=== PATIENT | male | born 1960 | race Caucasian/White ===

== ENCOUNTER 2017-09-06 00:26 | Inpatient (IN) | payer SELFPAY ==
[~2017-09-06] VITALS: Ht 172.7 cm; Wt 101.6 kg
[2017-09-06] VITALS (7 sets, daily range): BP systolic 112–139; BP diastolic 61–109
[~2017-09-06 00:26] MED LIST: ASPI81CT89 PO; ATA10 PO; GLIP5TAB4 PO; METF500T4 PO; Metoprolol Tartrate PO; NITR0.4T1 SL; SIMV20TA6 PO; SPIR25TA PO
[2017-09-06] MEDS ORDERED: MORPHINE SULFATE 4 MG/ML SYR ONE (00:39)
[2017-09-06] MEDS ORDERED: ONDANSETRON 4 MG/2 ML VIAL ONE (00:39)
[2017-09-06] MEDS ORDERED: MORPHINE SULFATE 4 MG/ML SYR IVP ONE (00:40)
[2017-09-06] MEDS ORDERED: ONDANSETRON 4 MG/2 ML VIAL IVP ONE (00:40)
--- NOTE | 2017-09-06 00:40 | NUR ---
PATIENT IS A 57 Y/O MALE WHO PRESENTS TO THE ED C/O CHEST PAIN. PT STATES, "MY CHEST HAS BEEN HURTING FOR 3 DAYS." PT REPORTS 8/10 SHARP CHEST PAIN THAT DOES NOT RADIATE, PT STATES HE HAS A HARD TIME BREATHING. PT DENIES SOB, REPORTS NAUSEA DENIES VOMITING/DIARRHEA. PT AAOX4, RR EVEN/UNLABORED. PT REPOSITIONED FOR COMFORT, BED IN LOWEST POSITION. ER MD DR. MONSALVE NOTIFIED. WILL CONTINUE TO MONITOR.
--- NOTE | 2017-09-06 00:57 | NUR ---
IVP MEDS GIVEN-NADR AT THIS TIME
--- NOTE | 2017-09-06 01:00 | NUR ---
PULLED ASP 325 MG AND 3 TABS OF NITRO SUBLINGUAL. Addendum: 09/06/17 at 0125 by MEDDCV PULLED ASP 325 MG AND 3 TABS OF NITRO SUBLINGUAL. RETURNED 2 NITRO TABS, GAVE 1 NITRO TAB.
[2017-09-06 01:01] LABS: HEMATOCRIT 49.9 % (36-52); HEMOGLOBIN 16.3 g/dL (12.0-18.0); MEAN CORPUSCULAR HEMOGLOBIN 29 pg (27-31); MEAN CORPUSCULAR HGB CONC 33 g/dL (33-37); MEAN CORPUSCULAR VOLUME 87 fL (80-94); PLATELET COUNT (AUTO) 174 K/uL (140-450); RED BLOOD CELL COUNT(AUTO) 5.73 MIL/uL (4.20-6.10); RED CELL DISTRIBUTION WIDTH 12.5 % (11.6-13.7); WHITE BLOOD COUNT (AUTO) 8.1 K/uL (4.8-10.8)
[2017-09-06] MEDS ORDERED: ASPIRIN 325 MG TAB ONE (01:03)
[2017-09-06] MEDS ORDERED: NITROGLYCERIN 0.4 MG TAB SL ONE ×2 (01:03→01:20)
[2017-09-06] MEDS ORDERED: ASPIRIN 325 MG TAB PO ONE (01:20)
[2017-09-06 01:27] LABS: EOSINOPHILS % (MANUAL) 1 % (0-4); LYMPHOCYTES % (MANUAL) 35 % (20-46); MONOCYTES % (MANUAL) 9 % (5-12)
[2017-09-06 01:34] LABS: ANION GAP 14.8 (8-16); CARBON DIOXIDE 27.2 mmol/L (21-32); CREATININE 1.5 mg/dL (0.7-1.3); TOTAL BILIRUBIN 0.8 mg/dL (0.0-1.0)
[2017-09-06 01:35] LABS: ALBUMIN 3.6 g/dL (3.4-5.0)
[2017-09-06] MEDS ORDERED: HYDROmorphone PFS 2 MG/ML SYR IVP ONE (01:45)
[2017-09-06] MEDS: NACL 0.9% 1,000 ML IV SCH ×2 (02:49→22:35)
[2017-09-06] MEDS ORDERED: ONDANSETRON 4 MG/2 ML VIAL IVP PRN (02:50)
[2017-09-06] MEDS ORDERED: ACETAMINOPHEN 325 MG TAB PO PRN (02:50)
[2017-09-06] MEDS ORDERED: HYDROcodone/APAP 7.5/325 MG 1 TAB PO PRN (02:50)
[2017-09-06] MEDS ORDERED: DEXTROSE 50% 50 ML SYR IVP PRN (02:55)
[2017-09-06] MEDS ORDERED: INSULIN HUMAN REGULAR 100 UNITS/ML 10 ML VIAL SUBQ SCH (03:00)
--- NOTE | 2017-09-06 03:20 | NUR ---
ADMITTED PT FROM ER. AAOX4. DX: CHEST PAIN. IV TO LEFT AC #18G, INTACT AND PATENT. ON O2 AT 2L/MIN VIA NC. AT BEDSIDE. ORIENTED PT TO ROOM. CALL LIGHT WITHIN REACH WILL CONTINUE TO MONITOR.
--- NOTE | 2017-09-06 03:20 | NUR ---
Patient will be admitted to care of DR. CLARK. Admited to TELE. Will go to room 106A. Belongings list completed. Report to MERI KENNEDY.
[2017-09-06] MEDS ORDERED: SIMETHICONE 80 MG TAB.CHEW PO PRN (03:40)
[2017-09-06] MEDS ORDERED: SIMETHICONE 80 MG TAB.CHEW PO ONE (03:40)
[2017-09-06] MEDS: MORPHINE SULFATE 2 MG/ML SYR IVP PRN ×3 (04:02→15:37)
--- NOTE | 2017-09-06 04:03 | NUR ---
PT C/O CHEST PAIN 03/27. MORPHINE 1 MG IVP GIVEN. CALL LIGHT WITHIN REACH. WILL CONTINUE TO MONITOR.
[2017-09-06 04:29] LABS: FREE T4 (FREE THYROXINE) 0.95 ng/dL (0.76-1.46); MAGNESIUM 1.9 mg/dL (1.8-2.4)
[2017-09-06 04:52] LABS: PROTHROMBIN TIME 8.9 secs (10.8-13.4)
[2017-09-06 05:02] LABS: CHOL/HDL RATIO 5.4 (1-4.5); PHOSPHORUS 3.3 mg/dL (2.5-4.9)
--- NOTE | 2017-09-06 05:43 | NUR ---
PT SLEEPING BUT EASILY AROUSABLE. NO S/S OF DISTRESS NOTED. AT BEDSIDE. CALL LIGHT WITHIN REACH.
[2017-09-06 05:56] LABS: THYROID STIMULATING HORMONE 4.55 uIU/mL (0.34-3.74)
[2017-09-06] MEDS: NITROGLYCERIN 0.4 MG TAB SL PRN ×3 (05:59→13:10)
--- NOTE | 2017-09-06 06:00 | NUR ---
PT C/O CHEST PAIN 9/10 ON PAIN SCALE. NITRO 0.4 MG GIVEN AT 0559. WILL CONTINUE TO MONITOR.
--- NOTE | 2017-09-06 06:05 | NUR ---
PT STILL COMPLAINING OF CHEST PAIN 04/27. SECOND DOSE OF NITRO 0.4MG SL GIVEN. WILL CONTINUE TO MONITOR
--- NOTE | 2017-09-06 06:09 | NUR ---
V/S TAKEN. BP 84/63. REPORTED V/S TO DR. SIDDIQI. ORDER TO HOLD 3RD DOSE OF NITRO AND RETAKE BP PT'S SITTING DOWN.
--- NOTE | 2017-09-06 06:11 | NUR ---
PT BP 107/60. PT STATED THAT PAIN IS 5/10. NO SOB NOTED. WAITING FOR PHARMACY TO VERIFY ORDER FOR TORADOL 15 MG IVP.
[2017-09-06] MEDS ORDERED: glipiZIDE 5 MG TAB PO SCH (06:30)
--- NOTE | 2017-09-06 06:58 | NUR ---
BLOOD SUGAR CHECKED 110. NO INSULIN COVERAGE NEEDED.
--- NOTE | 2017-09-06 06:59 | NUR ---
PATIENT HAS BEEN SCREENED AND CATEGORIZED MODERATE NUTRITION RISK. PATIENT WILL BE SEEN WITHIN 3-5 DAYS OF ADMISSION. 09/08/17-09/10/17 SUNITHA PEDERSON MS, RDN
--- NOTE | 2017-09-06 07:05 | NUR ---
RECEIVED PATIENT REPORT AT BEDSIDE. PATIENT AWAKE AND ALERT. PATIENT CURRENTLY BEING MEDICATED FOR CHEST PAIN BY CAR SALESMAN NURSE. WILL REASSESS. PATIENT ON 2L O2 VIA NC. NO SOB OR S/S OF DISTRESS NOTED. O2 SAT 97% AT THIS TIME. IV LINE NOTED TO THE LEFT AC WITH IVF INFUSING WELL. PATIENT ON TELE MONITORING. BED LOWERED WITH CALL LIGHT WITHIN REACH. WILL CONTINUE TO MONITOR
[2017-09-06] MEDS: KETOROLAC 15 MG/ML VIAL IVP SCH ×3 (07:07→23:20)
[2017-09-06] MEDS: BLOOD GLUCOSE MONITORING 1 DEV DEV FS SCH ×4 (07:07→21:31)
--- NOTE | 2017-09-06 07:07 | NUR ---
PT C/O PAIN 5/[address] SIDDIQI ORDERED TO GIVE TORADOL 15MG IVP. NO SOB NOTED.
--- NOTE | 2017-09-06 07:08 | NUR ---
TORADOL 15MG IVP GIVEN. WILL CONTINUE TO MONITOR. CALL LIGHT WITHIN REACH.
--- NOTE | 2017-09-06 07:09 | NUR ---
ENDORSED PT TO DAY SHIFT NURSE FOR CONTINUITY OF CARE. PT IN STABLE CONDITION.
[2017-09-06] MEDS: CYCLOBENZAPRINE 10 MG TAB PO SCH ×3 (08:45→16:57)
[2017-09-06] MEDS: metFORMIN 500 MG TAB PO SCH ×2 (08:45→16:58)
[2017-09-06] MEDS: PANTOPRAZOLE 40 MG TABEC PO SCH (08:45)
[2017-09-06] MEDS: SPIRONOLACTONE 25 MG TAB PO SCH (08:46)
[2017-09-06] MEDS: DOCUSATE SODIUM 100 MG GELCAP PO SCH ×2 (08:46→21:26)
[2017-09-06] MEDS: ASPIRIN 81 MG TAB.CHEW PO SCH (08:46)
[2017-09-06] MEDS ORDERED: METOPROLOL 25 MG TAB PO SCH (09:00)
--- NOTE | 2017-09-06 09:00 | NUR ---
ADMINISTERED DUE MEDS. PATIENT TOLERATED WELL
--- NOTE | 2017-09-06 11:20 | NUR ---
PATIENT SEEN BY DR SUERO
[2017-09-06] MEDS: INSULIN LISPRO SLIDING SCALE 100 UNITS/ML VIAL SUBQ PRN ×3 (12:27→21:32)
[2017-09-06] MEDS ORDERED: ATOR40TA PO (14:14)
[2017-09-06] MEDS ORDERED: METF1000 PO (14:14)
[2017-09-06] MEDS ORDERED: CARV3.12 PO (14:14)
[2017-09-06] MEDS ORDERED: GLIP10TA3 PO (14:14)
[2017-09-06] MEDS ORDERED: HYDR-3320 PO (14:14)
[2017-09-06] MEDS ORDERED: GABA-638 PO (14:14)
--- NOTE | 2017-09-06 16:00 | NUR ---
PATIENT ASLEEP IN BED. NO S/S OF DISTRESS NOTED
[2017-09-06] MEDS: GABAPENTIN 300 MG CAP PO SCH (16:57)
[2017-09-06] MEDS: glipiZIDE 10 MG TAB PO SCH (16:58)
[2017-09-06 17:35] LABS: APPEARANCE,URINE CLEAR (CLEAR); BILIRUBIN,URINE 1+ (NEGATIVE); BLOOD, URINE NEGATIVE (NEGATIVE); COLOR,URINE YELLOW (YELLOW); LEUKOCYTE ESTERASE ,URINE NEGATIVE (NEGATIVE); NITRITE, URINE NEGATIVE (NEGATIVE); PH,URINE 5.5 (5.0-9.0); UGLUCOSE 3+ (NEGATIVE)
[2017-09-06 17:39] LABS: RBC,URINE 0-5 (RARE) /HPF (0-5); WBC,URINE 0-5 (RARE) /HPF (0-5)
[2017-09-06 17:58] LABS: BARBITURATE, URINE NEG. ng/ml (NEG <=200); BENZODIAZEPINE, URINE NEG. ng/mL (NEG <=200); CANNABINOID, URINE NEG. ng/mL (NEG <=50); COCAINE, URINE NEG. ng/mL (NEG <=300); OPIATE, URINE POS. ng/mL (NEG <=2000); PHENCYCLIDINE SCREEN,URINE NEG. ng/mL (NEG <=25)
--- NOTE | 2017-09-06 19:20 | NUR ---
PATIENT REPORT GIVEN TO FINISHING MACHINE OPERATOR AUTOMATIC NURSE. PATIENT ENDORSED IN STABLE CONDITION
--- NOTE | 2017-09-06 19:25 | NUR ---
RECEIVED FROM AM RN IN BED AWAKE AND ALERT. ORIENTED X 4. CLEAR SPEECH . SPEAKS LAO AND UNDERSTANDS A LITTLE OF LATVIAN. DX. OF CHEST PAIN. TELEMETRY MONITORING. HX. STENT PLACEMENT. CALL LIGHT WITH IN REACH AND RE-ORIENTED TO CALL LIGHT USE. CARE PLANS FOR THE NIGHT DISCUSSED WITH HIM AND FAMILY MEMBERS. DENIES PAIN AT H IS TIME. MEDICATED WITH PAIN RELIEVER PRN.
[2017-09-06] MEDS ORDERED: SIMVASTATIN 20 MG TAB PO SCH (21:00)
--- NOTE | 2017-09-06 22:48 | NUR ---
PT. SLEEPING. NO RESTLESSNESS. TELEMETRY MONITORING. CALL LIGHT BESIDE HIM WITH IN REACH. FAMILY MEMBERS LEFT ON TIME.
--- NOTE | 2017-09-06 23:50 | NUR ---
AWAKE AT THIS TIME. REPOSITIONED AND REQUESTED FOR WATER. ABLE TO VERBALIZE SIMPLE NEEDS. PT. AT THIS TIME ASKED FOR PAIN RELIEVER RT PAIN IN CHEST. INFORMED HIM THAT I JUST GAVE IT TO HIM LIKE HOW MANY MINUTES AGO. "OK"
--- NOTE | 2017-09-07 02:20 | NUR ---
SLEEPING WELL. NO RESTLESSNESS . NO SOB . CALL LIGHT WITH IN REACH. IVF SITE INTACT AND NO INFILTRATION.
[2017-09-07 04:00] VITALS: BP 116/68
[2017-09-07] MEDS: glipiZIDE 10 MG TAB PO SCH ×2 (05:34→17:30)
[2017-09-07] MEDS: KETOROLAC 15 MG/ML VIAL IVP SCH ×3 (05:34→17:35)
[2017-09-07] MEDS: BLOOD GLUCOSE MONITORING 1 DEV DEV FS SCH ×4 (06:04→21:00)
[2017-09-07] MEDS: INSULIN LISPRO SLIDING SCALE 100 UNITS/ML VIAL SUBQ PRN ×4 (06:06→20:36)
--- NOTE | 2017-09-07 06:29 | NUR ---
SLEPT WELL THIS SHIFT. NO COMPLAINTS OF CHEST PAIN RT WITH TORADOL IVP ADMINISTERED BID ORDERED. ABLE TO GO RESTROOM BY HIMSELF SEEN BY ME. ROM X 4. CLEAR SPEECH.
--- NOTE | 2017-09-07 07:17 | NUR ---
ENDORSED TO THE NEXT RN FOR CONTINUITY OF CARE. AWAKE AND ALERT.
--- NOTE | 2017-09-07 07:18 | NUR ---
RECEIVED REPORT FROM THE METAL TEMPERER NURSE AT BEDSIDE FOR CONTINUITY OF CARE. PT IS AWAKE AND ORIENTED. INTRODUCED MYSELF AND UPDATED THE BOARD. PT IS CRINGING D/T PAIN. PER METAL TEMPERER NURSE, SHE JUST GAVE HIM TORADOL AROUND 0600 THIS MORNING. NOTED IV ON LAC 18G NS AT 50ML. SKIN INTACT. RESIDENT DR TO SEE PT. C/O PAIN. DR ORDERED KPAD. WILL REQUEST.
[2017-09-07 07:33] LABS: BASOPHILS # (AUTO) 0.1 K/uL (0.00-0.22); EOSINOPHILS # (AUTO) 0.1 K/uL (0-0.4); HEMATOCRIT 42.9 % (36-52); HEMOGLOBIN 14.1 g/dL (12.0-18.0); LYMPHOCYTES # (AUTO) 1.7 K/uL (2.0-11.5); LYMPHOCYTES % (AUTO) 23.1 % (20.5-51.1); MEAN CORPUSCULAR HEMOGLOBIN 29 pg (27-31); MEAN CORPUSCULAR HGB CONC 33 g/dL (33-37); MEAN CORPUSCULAR VOLUME 87 fL (80-94); MONOCYTES # (AUTO) 0.7 K/uL (0.8-1.0); NEUTROPHILS # (AUTO) 4.8 K/uL (1.8-7.7); NEUTROPHILS % (AUTO) 64.9 % (42.2-75.2); PLATELET COUNT (AUTO) 147 K/uL (140-450); RED BLOOD CELL COUNT(AUTO) 4.96 MIL/uL (4.20-6.10); RED CELL DISTRIBUTION WIDTH 12.7 % (11.6-13.7); WHITE BLOOD COUNT (AUTO) 7.4 K/uL (4.8-10.8)
[2017-09-07 07:57] LABS: ANION GAP 13.1 (8-16); CARBON DIOXIDE 24.6 mmol/L (21-32); CREATININE 1.1 mg/dL (0.7-1.3); POTASSIUM 3.7 mmol/L (3.5-5.1)
[2017-09-07 08:00] VITALS: BP 119/78
[2017-09-07] MEDS: LOSARTAN 50 MG TAB PO SCH (08:11)
[2017-09-07] MEDS: DOCUSATE SODIUM 100 MG GELCAP PO SCH ×2 (08:11→20:38)
[2017-09-07] MEDS: ATORVASTATIN 20 MG TAB PO SCH (08:11)
[2017-09-07] MEDS: PANTOPRAZOLE 40 MG TABEC PO SCH (08:11)
[2017-09-07] MEDS: metFORMIN 500 MG TAB PO SCH ×2 (08:11→17:30)
[2017-09-07] MEDS: GABAPENTIN 300 MG CAP PO SCH ×3 (08:12→17:30)
[2017-09-07] MEDS: ASPIRIN 81 MG TAB.CHEW PO SCH (08:12)
[2017-09-07] MEDS: HYDROCHLOROTHIAZIDE 25 MG TAB PO SCH (08:12)
[2017-09-07] MEDS: SPIRONOLACTONE 25 MG TAB PO SCH (08:12)
[2017-09-07] MEDS: CARVEDILOL 3.125 MG TAB PO SCH (08:13)
[2017-09-07] MEDS: CYCLOBENZAPRINE 10 MG TAB PO SCH ×3 (08:13→17:30)
[2017-09-07] MEDS: MORPHINE SULFATE 2 MG/ML SYR IVP PRN (08:14)
--- NOTE | 2017-09-07 08:17 | NUR ---
ADMINISTERED MORNING MEDS. PT C/O CHEST PAIN. 03/27 GAVE 1MG MORPHINE ALONG WITH MORNING MEDS. PT TOLERATED WELL. WILL CONTINUE TO MONITOR PT.
--- NOTE | 2017-09-07 10:20 | NUR ---
PT SLEEPING SOUNDLY. SNORING. NO SIGNS OF DISTRESS.
--- NOTE | 2017-09-07 10:52 | NUR ---
RADIOLOGIST HERE TO DO AN ECHO. WILL CONTINUE TO MONITOR PT. Addendum: 09/07/17 at 1054 by Sendy Richard RN DISREGARD, WRONG PT.
[2017-09-07 12:00] VITALS: BP 119/79
--- NOTE | 2017-09-07 13:44 | NUR ---
PT SLEEPING SOUNDLY. NO SIGNS OF DISTRESS.WILL CONTINUE TO MONITOR PT.
--- NOTE | 2017-09-07 15:12 | NUR ---
SLEEPING. NO SIGNS OF DISTRESS. AND DAUGHTER AT BEDSIDE. WILL CONTINUE TO MONITOR PT.
[2017-09-07 16:00] VITALS: BP 119/74
--- NOTE | 2017-09-07 17:10 | NUR ---
AT BEDSIDE. PT SLEEPING. NO SIGNS OF DISTRESS. WILL CONTINUE TO MONITOR PT.
[2017-09-07] MEDS: NACL 0.9% 1,000 ML IV SCH (17:55)
--- NOTE | 2017-09-07 18:36 | NUR ---
PT ATE 100% DINNER. SITTING UP AND WATCHING TV. SPOUSE GONE HOME. NO SIGNS OF DISTRESS. NO COMPLAINTS. WILL CONTINUE TO MONITOR PT.
--- NOTE | 2017-09-07 19:15 | NUR ---
ENDORSED PT TO THE GRASS FARM LABORER NURSE AT BEDSIDE FOR CONTINUITY OF CARE. PT IN STABLE CONDITION.
--- NOTE | 2017-09-07 19:25 | NUR ---
RECEIVED PT FROM DASH RN PT IS AAOX4 AMBULATORY IV ON LEFT FA INFUSING WELL , DENIES ANYCHEST PAIN, ON TELEMETRY SR 1 AV BLOCK PINITIAL ASSESSMENT DONE
[2017-09-07 20:00] VITALS: BP 114/78
--- NOTE | 2017-09-07 20:00 | NUR ---
PT AMBULATES TO THE RESTROOM AND HAS A BM
--- NOTE | 2017-09-07 21:30 | NUR ---
BLOOD SUGAR TEST 236 COVERAGE WITH 4 UNITS SUBQ HUMALOG PROTOCOL
[2017-09-08] VITALS: BP 103/75
--- NOTE | 2017-09-08 | NUR ---
PT SLEEPING WELL NOT DISTRESS NOTED ON TELEMETRY SR
[2017-09-08] MEDS: KETOROLAC 15 MG/ML VIAL IVP SCH ×2 (00:43→05:43)
[2017-09-08] MEDS: MORPHINE SULFATE 2 MG/ML SYR IVP PRN (03:48)
[2017-09-08 04:01] VITALS: BP 114/80
--- NOTE | 2017-09-08 04:10 | NUR ---
PT AFTER PAIN MEDIC GIVEN GETTING SLEEP ON TELEMETRY SR IV ON LEFT AC INFUSING WELL
[2017-09-08] MEDS: BLOOD GLUCOSE MONITORING 1 DEV DEV FS SCH ×2 (05:39→12:10)
[2017-09-08] MEDS: INSULIN LISPRO SLIDING SCALE 100 UNITS/ML VIAL SUBQ PRN ×2 (05:41→12:09)
--- NOTE | 2017-09-08 05:54 | NUR ---
SPONGE BATH GIVEN LINEN CHANGED ON TELE SR 1 AV BLOCK REMAIN STABLE
--- NOTE | 2017-09-08 06:27 | NUR ---
PT REMAIN STABLE NOT DISTRESS NOTED DENIES ANY PAIN ON TELEMETRY SR
[2017-09-08] MEDS: glipiZIDE 10 MG TAB PO SCH (06:32)
[2017-09-08 07:07] LABS: BASOPHILS # (AUTO) 0.1 K/uL (0.00-0.22); BASOPHILS % (AUTO) 1.4 % (0.0-2.0); EOSINOPHILS # (AUTO) 0.1 K/uL (0-0.4); EOSINOPHILS % (AUTO) 2.3 % (0.0-4.0); HEMATOCRIT 41.7 % (36-52); HEMOGLOBIN 14.3 g/dL (12.0-18.0); LYMPHOCYTES # (AUTO) 1.9 K/uL (2.0-11.5); LYMPHOCYTES % (AUTO) 32.5 % (20.5-51.1); MEAN CORPUSCULAR HEMOGLOBIN 30 pg (27-31); MEAN CORPUSCULAR HGB CONC 34 g/dL (33-37); MEAN CORPUSCULAR VOLUME 86 fL (80-94); MONOCYTES # (AUTO) 0.6 K/uL (0.8-1.0); MONOCYTES % (AUTO) 10.6 % (1.7-9.3); NEUTROPHILS # (AUTO) 3.1 K/uL (1.8-7.7); NEUTROPHILS % (AUTO) 53.2 % (42.2-75.2); PLATELET COUNT (AUTO) 153 K/uL (140-450); RED BLOOD CELL COUNT(AUTO) 4.86 MIL/uL (4.20-6.10); RED CELL DISTRIBUTION WIDTH 12.6 % (11.6-13.7); WHITE BLOOD COUNT (AUTO) 5.8 K/uL (4.8-10.8)
--- NOTE | 2017-09-08 07:15 | NUR ---
RECEIVED BEDSIDE REPORT AT BEDSIDE FROM NIGHTSHIFT NURSE. PATIENT IS ASLEEP BUT AROUSABLE. PATIENT A&OX4 AT THIS TIME. PATIENT BREATHING IS SYMMETRICAL AND UNLABORED. PATIENT DOES NOT COMPLAIN OF PAIN AT THIS TIME. NO SIGNS OF NAUSEA OR DIAPHORESIS AT THIS TIME. INSTRUCTED PATIENT TO CALL IF HE NEEDS ANYTHING. PROVIDED CALL LIGHT FOR PATIENT AND SHOWED HIM HOW TO USE IT. PATIENT DEMONSTRATED HOW TO USE THE CALL LIGHT. UPDATED WHITE BOARD ON PATIENT'S WALL. WILL CONTINUE TO MONITOR PATIENT.
[2017-09-08 07:46] LABS: ANION GAP 14.4 (8-16); CARBON DIOXIDE 27.6 mmol/L (21-32); CREATININE 1.1 mg/dL (0.7-1.3)
[2017-09-08 08:07] VITALS: BP 127/91
[2017-09-08] MEDS: ASPIRIN 81 MG TAB.CHEW PO SCH (08:54)
[2017-09-08] MEDS: SPIRONOLACTONE 25 MG TAB PO SCH (08:54)
[2017-09-08] MEDS: HYDROCHLOROTHIAZIDE 25 MG TAB PO SCH (08:55)
[2017-09-08] MEDS: CARVEDILOL 3.125 MG TAB PO SCH (08:55)
[2017-09-08] MEDS: PANTOPRAZOLE 40 MG TABEC PO SCH (08:56)
[2017-09-08] MEDS: LOSARTAN 50 MG TAB PO SCH (08:56)
[2017-09-08] MEDS: ATORVASTATIN 20 MG TAB PO SCH (08:56)
[2017-09-08] MEDS: metFORMIN 500 MG TAB PO SCH (08:57)
[2017-09-08] MEDS: DOCUSATE SODIUM 100 MG GELCAP PO SCH (08:57)
[2017-09-08] MEDS: GABAPENTIN 300 MG CAP PO SCH ×2 (08:57→12:04)
[2017-09-08] MEDS: CYCLOBENZAPRINE 10 MG TAB PO SCH ×2 (08:58→12:04)
[2017-09-08] MEDS ORDERED: IBUP-2213 PO (09:12)
[2017-09-08] MEDS ORDERED: ASPI81CT89 PO (09:12)
--- NOTE | 2017-09-08 10:05 | NUR ---
PATIENT IS ASLEEP AT THIS TIME BUT STILL AROUSABLE. NO SIGNS OF RESPIRATORY DISTRESS OR DEPRESSION NOTED. WILL CONTINUE TO MONITOR PATIENT.
--- NOTE | 2017-09-08 12:00 | NUR ---
D/C INSTRUCTIONS GIVEN. THOROUGH ED ON DIABETES, DIET, EXERCISE GIVEN. PT AND FAMILY VERBALIZED UNDERSTANDING. REMOVED TELE MONITOR; IV, CANNULA INTACT, NO BLEEDING NOTED; ID BANDS. FAMILY WILL GATHER PERSONAL BELONGINGS. PT WILL GET DRESSED AND WILL LET US KNOW WHEN HE IS READY TO LEAVE. WILL HAVE WHEELCHAIR READY.
--- NOTE | 2017-09-08 12:25 | NUR ---
PUSHED PT OUT IN A WHEELCHAIR ACCOMPANIED BY AND DAUGHTER. ALL PERSONAL BELONGINGS WITH FAMILY. PT IN STABLE CONDITION.
== END 2017-09-08 12:25 | disposition home or self-care (01) | DRG 205 ==
LOC: MED 00:26 → MTU 02:52
PROVIDERS: ADMIT Family Medicine Sports Medicine; ATTEND Family Medicine Sports Medicine
DX: M94.0 Chondrocostal junction syndrome [Tietze] (principal); N17.0 Acute kidney failure with tubular necrosis; D68.59 Other primary thrombophilia; E11.65 Type 2 diabetes mellitus with hyperglycemia; I10 Essential (primary) hypertension; I25.10 Atherosclerotic heart disease of native coronary artery without angina pectoris; E78.5 Hyperlipidemia, unspecified; Z79.84 Long term (current) use of oral hypoglycemic drugs; Z79.899 Other long term (current) drug therapy; Z95.5 Presence of coronary angioplasty implant and graft; Z79.82 Long term (current) use of aspirin
CPT/HCPCS: 36415; 71045; 80048; 80053; 80305; 81001; 82948; 83036; 83690; 83735; 83880; 84100; 84439; 84443; 84484; 85025; 85610; 85730; 87081; 93005; 93925; 93970; 96374; 96375; 99285; J1170; J1815; J1885; J2270; J2405; J7030; Q0092

== ENCOUNTER 2018-05-31 20:10 | Inpatient (IN) | payer MEDICAID ==
[~2018-05-31] VITALS: Ht 172.7 cm; Wt 91.6 kg
[2018-05-31 20:10] VITALS: BP 125/71
[~2018-05-31 20:10] MED LIST changes: -ATA10 PO; +ATOR40TA PO; +CARV3.12 PO; +GABA-638 PO; +GLIP10TA3 PO; -GLIP5TAB4 PO; +HYDR-3320 PO; +IBUP-2213 PO; +METF1000 PO; -METF500T4 PO; -Metoprolol Tartrate PO; -NITR0.4T1 SL; -SIMV20TA6 PO; -SPIR25TA PO
--- NOTE | 2018-05-31 20:10 | NUR ---
PATIENT BIB W/C TO ER BED 7.
--- NOTE | 2018-05-31 20:12 | NUR ---
PT BIB W/C C/O C/P-LT ARM , PAIN 10/10, X 1HOUR- AT WORK. PUT PT ON MONITOR SHOWS SR. AUCC 309.DENIES N/V/D; SKIN IS PINK/WARM/DRY; AWAKE, ALERT.; RESPIRATION RATE IS FAST. LUNGS CLEAR BL; SHOWED PT TO DO DEEP BREATH. HR EVEN AND REGULAR; PT DENIES ANY FEVER, SOB, OR COUGH AT THIS TIME; PATIENT STATES PAIN OF 10/10 TO LEFT CHEST AT THIS TIME; VSS; PATIENT POSITIONED FOR COMFORT; HOB ELEVATED; BEDRAILS UP X2; BED DOWN. ER MD MADE AWARE OF PT STATUS.
[2018-05-31] MEDS ORDERED: LORazepam 2 MG/ML VIAL IVP ONE (20:15)
[2018-05-31] MEDS ORDERED: ASPIRIN 325 MG TAB PO ONE (20:15)
[2018-05-31] MEDS ORDERED: NITROGLYCERIN 2% 1 GM PKT TP ONE (20:15)
--- NOTE | 2018-05-31 20:22 | NUR ---
slot technician at bedside.
[2018-05-31 20:32] LABS: BASOPHILS # (AUTO) 0.1 K/uL (0.00-0.22); EOSINOPHILS # (AUTO) 0.1 K/uL (0-0.4); EOSINOPHILS % (AUTO) 1.4 % (0.0-4.0); HEMATOCRIT 45.4 % (36-52); HEMOGLOBIN 15.4 g/dL (12.0-18.0); LYMPHOCYTES # (AUTO) 2.9 K/uL (2.0-11.5); MEAN CORPUSCULAR HEMOGLOBIN 30 pg (27-31); MEAN CORPUSCULAR HGB CONC 34 g/dL (33-37); MEAN CORPUSCULAR VOLUME 86.6 fL (80-94); MONOCYTES # (AUTO) 0.8 K/uL (0.8-1.0); MONOCYTES % (AUTO) 9.8 % (1.7-9.3); NEUTROPHILS # (AUTO) 3.8 K/uL (1.8-7.7); NEUTROPHILS % (AUTO) 49.8 % (42.2-75.2); PLATELET COUNT (AUTO) 191 K/uL (140-450); RED BLOOD CELL COUNT(AUTO) 5.24 MIL/uL (4.20-6.10); RED CELL DISTRIBUTION WIDTH 13.7 % (11.6-13.7); WHITE BLOOD COUNT (AUTO) 7.7 K/uL (4.8-10.8)
--- NOTE | 2018-05-31 20:45 | NUR ---
PT CALMED DOWN AT THIS MOMENT. NO FAST RESPIRATION RATE NOTED. PT ALSO STATED PAIN RELIEVED A LITTLE BIT.
[2018-05-31 20:54] LABS: CARBON DIOXIDE 26.1 mmol/L (21-32); CREATININE 1.5 mg/dL (0.7-1.3); POTASSIUM 4.1 mmol/L (3.5-5.1)
[2018-05-31 20:55] LABS: PROTHROMBIN TIME 9.4 secs (10.8-13.4)
[2018-05-31 21:00] LABS: ALBUMIN 3.7 g/dL (3.4-5.0); TOTAL BILIRUBIN 0.5 mg/dL (0.0-1.0)
[2018-05-31] MEDS ORDERED: MORPHINE SULFATE 4 MG/ML SYR IVP ONE (21:30)
[2018-05-31] MEDS ORDERED: ONDANSETRON 4 MG/2 ML VIAL IVP ONE (21:30)
--- NOTE | 2018-05-31 21:30 | NUR ---
NOTIFIED DR. IQBAL, PT STILL C/O CHEST PAIN.
[2018-05-31] MEDS ORDERED: MORPHINE SULFATE 2 MG/ML SYR IVP PRN (21:35)
[2018-05-31] MEDS ORDERED: ONDANSETRON 4 MG/2 ML VIAL IM/IVP PRN (21:35)
[2018-05-31] MEDS ORDERED: HYDROcodone/APAP 5/325 MG 1 TAB TAB PO PRN (21:35)
[2018-05-31] MEDS ORDERED: ZOLPIDEM 5 MG TAB PO PRN (21:35)
[2018-05-31] MEDS ORDERED: DOCUSATE SODIUM 100 MG GELCAP PO PRN (21:35)
[2018-05-31] MEDS ORDERED: LORazepam 2 MG/ML VIAL IM/IVP PRN (21:35)
[2018-05-31 22:00] VITALS: BP 91/51
--- NOTE | 2018-05-31 22:00 | NUR ---
PT AWAKE, ALERT. ON O2 NC 2L/MIN. NO S/S OF RESPIRATORY DISTRESS NOTED. TRANSFERRED PT TO TELE 105 A BY LEO TORRESAPNIED WITH MARCIA AND EMERSON , ALL PERSOANAL BELONGINGS WITH PT. PT'S DAUGHTER WITH PT. REPORT GIVEN TO FELISHA KENNEDY. PT AMBULATE FROM HALLWAY TO HIS BED. PT IN STABLE CONDITION AT THIS TIME.
--- NOTE | 2018-05-31 22:00 | NUR ---
PT ARRIVED TO UNIT VIA GURNEY WITH FAMILY AT BEDSIDE. RECEIVED REPORT FROM ER NURSE JAVID-RN AT BEDSIDE. AOX4- CROATIAN AND TONGAN SPEAKING. ON 2L/NC, WITH TWO IV SITES: RIGHT HAND #20G-SL AND LEFT AC #18-SL. SKIN INTACT HOWEVER LEFT HAND MIDDLE FINGER-INGROWN NAIL NOTED. PHOTOGRAPH TAKEN AND PLACED IN PT CHART. DR. TEJADA IN TO SEE PT. DISCUSSED PLAN OF CARE AND PT VERBALIZED UNDERSTANDING. NO S/S OF RESPIRATORY DISTRESS OR DISCOMFORT NOTED AT THIS TIME. MRSA SWAB COLLECTED. VITAL SIGNS TAKEN AND LOW B/P NOTED. BED IN LOWEST POSITION, BED BREAKS ON, BOTH SIDE RAILS UP. BED SIDE TABLE AND CALL LIGHT ARE WITHIN REACH. WILL CONTINUE TO MONITOR.
[2018-05-31] MEDS ORDERED: DEXTROSE 50% 50 ML SYR IVP PRN (22:20)
[2018-05-31] MEDS: NACL 0.9% 1,000 ML IV SCH (22:48)
--- NOTE | 2018-05-31 22:48 | NUR ---
IVF HUNG AND TOLERATED WELL. NO S/S OF RESPIRATORY DISTRESS OR DISCOMFORT NOTED AT THIS TIME. WILL CONTINUE TO MONITOR.
[2018-05-31 23:06] LABS: AMYLASE 29 U/L (25-115); CHOL/HDL RATIO 3.6 (1-4.5); HDL CHOLESTEROL 38 mg/dL (40-60); LDL (CALC) 41 mg/dL (60-100); LIPASE 202 U/L (73-393); MAGNESIUM 1.6 mg/dL (1.8-2.4); PHOSPHORUS 2.8 mg/dL (2.5-4.9); THYROID STIMULATING HORMONE 1.76 uIU/mL (0.34-3.74); TRIGLYCERIDES 286 mg/dL (30-150)
[2018-06-01] VITALS (8 sets, daily range): BP systolic 91–133; BP diastolic 47–86
--- NOTE | 2018-06-01 | NUR ---
VITAL SIGNS TAKEN AND TOLERATED WELL. NO S/S OF RESPIRATORY DISTRESS OR DISCOMFORT NOTED AT THIS TIME. WILL CONTINUE TO MONITOR.
[2018-06-01] MEDS ORDERED: INFLUENZA VIRUS VACCINE QUAD 0.5 ML SYR IMVAC PRN (01:45)
[2018-06-01] MEDS ORDERED: PNEUMOCOCCAL VACCINE 23 MCG/0.5 ML VIAL IMVAC PRN (01:45)
--- NOTE | 2018-06-01 02:00 | NUR ---
PT SLEEPING AT THIS TIME. NO S/S OF RESPIRATORY DISTRESS OR DISCOMFORT NOTED AT THIS TIME. WILL CONTINUE TO MONITOR.
--- NOTE | 2018-06-01 04:00 | NUR ---
VITAL SIGNS TAKEN AND TOLERATED WELL. NO S/S OF RESPIRATORY DISTRESS OR DISCOMFORT NOTED AT THIS TIME. WILL CONTINUE TO MONITOR.
[2018-06-01] MEDS ORDERED: ACETAMINOPHEN/CODEINE 300/30MG 1 TAB PO SCH (04:45)
--- NOTE | 2018-06-01 05:00 | NUR ---
BLOOD GLUCOSE 229-WILL ADMINISTER INSULIN COVERAGE
--- NOTE | 2018-06-01 05:55 | NUR ---
RECEIVED A PHONE CALL FROM LANEY-MARCIA STATING, "YOUR PATIENT FELL AND IS ON THE FLOOR." I WENT INTO PT ROOM. FOUND PATIENT ON THE FLOOR UNRESPONSIVE WITH PULSE. CALLED OUT FOR HELP AND CALLED RAPID RESPONSE. CHARGE NURSE RACIEL CAME INTO THE ROOM AND GRABBED CRASH CART. STERNAL RUBS GIVEN BUT STILL NO RESPONSE. PT LEGS ARE SHAKING. ASKED LANEY WHAT HAD HAPPENED. SHE STATED, "PT WAS IN THE MIDDLE OF THE ROOM WITH A BLANK STARE. ASKED IF HE WAS OK AND PT BEGAN TO FALL. I ASSISTED PT TO THE FLOOR AND CALLED ASSIGNED NURSE." VITAL SIGNS TAKEN. 107/71 BP, 77 HR, SPO2 97%, 22 RESPIRATIONS AND 98.0 DEGREES F. NO WOUNDS ON PT. NURSING TEAM ASSISTED PT TO CHAIR. THEN ASSISTED PT TO BED. PT CANNOT REMEMBER WHAT HAPPENED AFTER LEAVING THE BATHROOM. ASKED PT IF HE FEELS ANY PAIN IN HIS BODY AND HE STATED, "NO, I FEEL DIZZY."
[2018-06-01] MEDS: BLOOD GLUCOSE MONITORING 1 DEV DEV FS SCH ×4 (06:56→20:44)
[2018-06-01] MEDS: INSULIN LISPRO SLIDING SCALE 100 UNITS/ML VIAL SUBQ PRN ×4 (06:58→20:26)
--- NOTE | 2018-06-01 06:58 | NUR ---
INSULIN COVERAGE GIVEN. PT TOLERATED WELL. NO S/S OF RESPIRATORY DISTRESS OR DISCOMFORT NOTED AT THIS TIME. WILL CONTINUE TO MONITOR.
--- NOTE | 2018-06-01 07:30 | NUR ---
RECEIVED ON BED AAOX4. NO SOB NOTED. NO C/O PAIN AT THIS TIME. IV TO LT AC AND RT HAND PATENT AND INTACT. CHEST DIMINISHED AIR ENTRY TO THE BASES, ON OXYGEN 3 LPM VIA NASAL CANNULA. ABDOMEN LARGE BUT SOFT. INSTRUCTED PT TO CALL FOR ASSISTANCE, CALL LIGHT WITHIN REACH. PT VERBALIZED UNDERSTANDING.
[2018-06-01 07:46] LABS: BASOPHILS % (AUTO) 0.4 % (0.0-2.0); EOSINOPHILS # (AUTO) 0.1 K/uL (0-0.4); EOSINOPHILS % (AUTO) 1.7 % (0.0-4.0); HEMATOCRIT 42.2 % (36-52); LYMPHOCYTES # (AUTO) 2.2 K/uL (2.0-11.5); LYMPHOCYTES % (AUTO) 32.9 % (20.5-51.1); MEAN CORPUSCULAR HEMOGLOBIN 29 pg (27-31); MEAN CORPUSCULAR HGB CONC 33 g/dL (33-37); MEAN CORPUSCULAR VOLUME 87.7 fL (80-94); MONOCYTES # (AUTO) 0.5 K/uL (0.8-1.0); NEUTROPHILS # (AUTO) 3.9 K/uL (1.8-7.7); PLATELET COUNT (AUTO) 165 K/uL (140-450); RED BLOOD CELL COUNT(AUTO) 4.82 MIL/uL (4.20-6.10); RED CELL DISTRIBUTION WIDTH 13.7 % (11.6-13.7); WHITE BLOOD COUNT (AUTO) 6.8 K/uL (4.8-10.8)
[2018-06-01 08:31] LABS: ANION GAP 7.9 (8-16); CARBON DIOXIDE 27.9 mmol/L (21-32); CREATININE 1.6 mg/dL (0.7-1.3); POTASSIUM 3.8 mmol/L (3.5-5.1)
--- NOTE | 2018-06-01 08:37 | NUR ---
PATIENT HAS BEEN SCREENED AND CATEGORIZED HIGH NUTRITION RISK. PATIENT WILL BE SEEN WITHIN 1-2 DAYS OF ADMISSION. 06/01/18 06/02/[address]
[2018-06-01 08:39] LABS: MAGNESIUM 1.6 mg/dL (1.8-2.4); PHOSPHORUS 4.1 mg/dL (2.5-4.9)
[2018-06-01] MEDS: IBUPROFEN 600 MG TAB PO SCH ×2 (08:45→12:21)
[2018-06-01] MEDS: HYDROCHLOROTHIAZIDE 25 MG TAB PO SCH (08:46)
[2018-06-01] MEDS: ASPIRIN 81 MG TAB.CHEW PO SCH (08:46)
[2018-06-01] MEDS: GABAPENTIN 300 MG CAP PO SCH ×3 (08:46→17:41)
[2018-06-01] MEDS ORDERED: LOSARTAN 50 MG TAB PO SCH (09:00)
[2018-06-01] MEDS ORDERED: LISINOPRIL 5 MG TAB PO SCH (09:00)
[2018-06-01] MEDS ORDERED: CARVEDILOL 3.125 MG TAB PO SCH (09:00)
[2018-06-01] MEDS ORDERED: ATORVASTATIN 20 MG TAB PO SCH ×2 (09:00→21:00)
[2018-06-01] MEDS ORDERED: ASPIRIN 81 MG TAB.CHEW PO SCH (09:00)
[2018-06-01] MEDS ORDERED: METOPROLOL 25 MG TAB PO SCH (09:00)
[2018-06-01] MEDS: NACL 0.9% 1,000 ML IV SCH ×3 (09:43→19:30)
[2018-06-01] MEDS ORDERED: KETOROLAC 15 MG/ML VIAL IVP PRN (10:45)
--- NOTE | 2018-06-01 11:00 | NUR ---
PHYSICAL THERAPY ON GOING AT THE BEDSIDE.
[2018-06-01] MEDS ORDERED: MAG SULF 2000 MG/WATER PREMIX 50 ML IV ONE (11:10)
[2018-06-01] MEDS ORDERED: FUROSEMIDE 20 MG/2 ML VIAL IVP SCH (11:30)
[2018-06-01] MEDS ORDERED: BISACODYL 10 MG SUPP RC SCH (11:30)
[2018-06-01] MEDS: MAGNESIUM SULFATE 1GM in DEXTROSE 5% 100 ML PREMIX IV SCH ×2 (12:15→13:43)
[2018-06-01] MEDS: MECLIZINE 25 MG TAB PO PRN (12:22)
--- NOTE | 2018-06-01 13:45 | NUR ---
PT WHEELED TO THE CT DEPT FOR CT HEAD W/O CONTRAST IN STABLE CONDITION.
--- NOTE | 2018-06-01 14:05 | NUR ---
PT BACK FROM CT DEPT IN STABLE CONDITION,NO SOB NOTED. NO COMPLAINTS MADE.
--- NOTE | 2018-06-01 14:48 | NUR ---
06/01/18 RD INITIAL ASSESSMENT COMPLETED PLEASE REFER TO NUTRITION ASSESSMENT UNDER CARE ACTIVITY FOR ESTIMATED NUTRITIONAL NEEDS. 1. CONTINUE CARDIAC AND CCHO 60 GM DIET TOLERATED 2. RD TO FOLLOW UP WITH NUTRITION EDUCATION ON CARDIAC DIET (LOW IN SODIUM AND FAT) 3. RD TO FOLLOW-UP 3-5 DAYS, MODERATE RISK MALIK GOULD, RD
--- NOTE | 2018-06-01 15:15 | NUR ---
PT RESTING. NO SOB NOTED. NO C/O PAIN AT THIS TIME. RECORDS FROM [facility] CAME THROUGH BY FAX AND PLACED IN PT'S CHART. RECORDS REQUESTED FROM [facility] DID NOT GO THROUGH, FAXED 3X. ENDORSED TO KAMERON-RN FOR CONTINUITY OF CARE.
--- NOTE | 2018-06-01 15:16 | NUR ---
RECEIVED BEDSIDE REPORT FROM MARCIA JULIEN. PATIENT IS AWAKE, ALERT AND ORIENTEDX4. NO SIGNS OF DISTRESS ON 2L NC. NO COMPLAINTS OF PAIN AT THIS TIME. FALL RISK PROTOCOL IN PLACE. IV ON R HAND 20G SL. L AC 18G INFUSING NS AT 100. IVS ARE CLEAN, DRY AND INTACT. PATIENT AMBULATES W ASSIST. URINAL AT BEDSIDE. BED IN LOW POSITION. CALL LIGHT WITHIN REACH. WILL CONTINUE TO MONITOR THE PATIENT
[2018-06-01] MEDS: IBUPROFEN 800 MG TAB PO SCH (17:41)
--- NOTE | 2018-06-01 17:42 | NUR ---
ADMINISTERED MEDS ORDERED. PATIENT TOLERATED WELL. NO SIGNS OF DISTRESS. FAMILY AT BEDSIDE. WILL CONTINUE TO MONITOR THE PATIENT. CALL LIGHT WITHIN REACH
--- NOTE | 2018-06-01 18:26 | NUR ---
FAXED HIM TO [facility] AT [phone]. FAX RECEIVED. MEMORY OK
--- NOTE | 2018-06-01 19:20 | NUR ---
GAVE BEDSIDE REPORT TO CONTINUOUS MINER OPERATOR HELPER NURSE. PATIENT ENDORSED IN STABLE CONDITION
--- NOTE | 2018-06-01 19:22 | NUR ---
RECEIVED PT ASLEEP, EASILY AROUSABLE, AAOX4, VITAL SIGNS STABLE, DENIES PAIN AT THIS TIME, NO SOB NOTED, IVF INFUSING WELL, PLAN OF CARE DISCUSSED, SAFETY MEASURES IN PLACE, SIDE RAILS UP AND BED ALARM ON, ENCOURAGE TO CALL FOR ASSISTANCE, CALL LIGHT WITHIN REACH.
--- NOTE | 2018-06-01 19:40 | NUR ---
RECEIVED PATIENT ON ROOM AIR. SPO2 92 HEART RATE 78 RATE 18. PATIENT WAS AWAKE, ALERT WITH NO SOB.
[2018-06-01] MEDS: CLINDAMYCIN PHOS 600MG/D5W PM 50 ML IV SCH (20:18)
--- NOTE | 2018-06-01 20:45 | NUR ---
BLOOD SUGAR CHECKED WITH 231 RESULT, COVERAGE GIVEN, SNACK PROVIDED, DUE MEDS ADMINISTERED, MONITORED FOR ANY REACTION TO CLINDAMYCIN IVPB, ALL NEEDS ATTENDED.
[2018-06-01] MEDS ORDERED: SIMVASTATIN 40 MG TAB PO SCH (21:00)
--- NOTE | 2018-06-01 21:30 | NUR ---
DR GENAO SAW AND EXAMINED THE PT, WITH NEW ORDER.
[2018-06-02] VITALS: BP 124/72
--- NOTE | 2018-06-02 | NUR ---
PT SLEEPING, EASILY AROUSABLE, VITAL SIGNS STABLE, DENIES PAIN, SIDE RAILS UP AND BED ALARM ON, CONTINUE TO MONITOR CLOSELY.
--- NOTE | 2018-06-02 03:30 | NUR ---
PT SLEEPING, EASILY AROUSABLE, VITAL SIGNS STABLE, DENIES PAIN, IVF INFUSING WELL.
[2018-06-02 04:00] VITALS: BP 123/87
[2018-06-02] MEDS: CLINDAMYCIN PHOS 600MG/D5W PM 50 ML IV SCH (04:15)
[2018-06-02] MEDS: NACL 0.9% 1,000 ML IV SCH (04:19)
[2018-06-02] MEDS: INSULIN LISPRO SLIDING SCALE 100 UNITS/ML VIAL SUBQ PRN ×2 (06:06→12:53)
--- NOTE | 2018-06-02 07:15 | NUR ---
PT SLEEPING, NO SIGNS OF DISTRESS, REPORT GIVEN TO RN ANAYA FOR CONTINUITY OF CARE.
[2018-06-02 07:23] LABS: BASOPHILS % (AUTO) 0.5 % (0.0-2.0); EOSINOPHILS # (AUTO) 0.2 K/uL (0-0.4); EOSINOPHILS % (AUTO) 2.4 % (0.0-4.0); HEMATOCRIT 41.3 % (36-52); HEMOGLOBIN 14.1 g/dL (12.0-18.0); LYMPHOCYTES # (AUTO) 2.3 K/uL (2.0-11.5); LYMPHOCYTES % (AUTO) 35.2 % (20.5-51.1); MEAN CORPUSCULAR HEMOGLOBIN 30 pg (27-31); MEAN CORPUSCULAR HGB CONC 34 g/dL (33-37); MEAN CORPUSCULAR VOLUME 86.9 fL (80-94); MONOCYTES # (AUTO) 0.6 K/uL (0.8-1.0); MONOCYTES % (AUTO) 8.6 % (1.7-9.3); NEUTROPHILS # (AUTO) 3.5 K/uL (1.8-7.7); NEUTROPHILS % (AUTO) 53.3 % (42.2-75.2); PLATELET COUNT (AUTO) 154 K/uL (140-450); RED BLOOD CELL COUNT(AUTO) 4.75 MIL/uL (4.20-6.10); RED CELL DISTRIBUTION WIDTH 13.2 % (11.6-13.7); WHITE BLOOD COUNT (AUTO) 6.7 K/uL (4.8-10.8)
--- NOTE | 2018-06-02 07:30 | NUR ---
RECEIVED ON BED AAOX4. NO SOB NOTED. NO C/O PAIN AT THIS TIME. IV TO LT AC AND RT HAND PATENT AND INTACT. CHEST DIMINISHED AIR ENTRY TO THE BASES. ABDOMEN LARGE BUT SOFT, BOWEL SOUNDS PRESENT.NO EDEMA NOTED. INSTRUCTED PT TO CALL FOR ASSISTANCE, CALL LIGHT WITHIN REACH. PT VERBALIZED UNDERSTANDING.
[2018-06-02] MEDS: BLOOD GLUCOSE MONITORING 1 DEV DEV FS SCH ×2 (07:34→12:21)
[2018-06-02 07:40] LABS: ANION GAP 11.3 (8-16); CARBON DIOXIDE 27.3 mmol/L (21-32); CREATININE 1.1 mg/dL (0.7-1.3); POTASSIUM 3.6 mmol/L (3.5-5.1)
[2018-06-02 08:00] VITALS: BP 124/89
[2018-06-02] MEDS ORDERED: CARVEDILOL 3.125 MG TAB PO SCH (08:00)
[2018-06-02] MEDS ORDERED: CARVEDILOL 6.25 MG TAB PO SCH (08:00)
[2018-06-02] MEDS ORDERED: LOSA25TA1 PO (08:01)
[2018-06-02] MEDS ORDERED: ISOS30TE35 PO (08:01)
[2018-06-02] MEDS ORDERED: AMLO5TAB4 PO (08:01)
[2018-06-02] MEDS ORDERED: ORE25 PO (08:01)
[2018-06-02] MEDS ORDERED: TRI48 PO (08:01)
[2018-06-02] MEDS ORDERED: CARV3.122 PO (08:01)
[2018-06-02 08:24] LABS: T4 (THYROXINE) 7.1 ug/dL (4.5-12.0)
[2018-06-02] MEDS ORDERED: METF850T PO (08:43)
[2018-06-02] MEDS ORDERED: FAMO-90 PO (08:43)
[2018-06-02] MEDS ORDERED: FENOFIBRATE 48 MG TAB PO SCH (09:00)
[2018-06-02] MEDS ORDERED: LACTOBACILLUS RHAMNOSUS GG 1 EACH CAP PO SCH (09:00)
[2018-06-02] MEDS ORDERED: FAMOTIDINE 20 MG TAB PO SCH (09:00)
[2018-06-02] MEDS ORDERED: LOSARTAN 25 MG TAB PO SCH (09:00)
[2018-06-02] MEDS ORDERED: amLODIPine 5 MG TAB PO SCH ×2 (09:00)
[2018-06-02] MEDS: GABAPENTIN 300 MG CAP PO SCH ×2 (09:05→12:54)
[2018-06-02] MEDS: MECLIZINE 25 MG TAB PO PRN (09:05)
--- NOTE | 2018-06-02 09:05 | NUR ---
DISCUSSED TO PT REGARDING D/C PLANNING TODAY. PT STATED HIS CAN PICK HIM UP AROUND 2 PM TODAY.
[2018-06-02] MEDS: HYDROCHLOROTHIAZIDE 25 MG TAB PO SCH (09:06)
[2018-06-02] MEDS: ASPIRIN 81 MG TAB.CHEW PO SCH (09:06)
[2018-06-02] MEDS: IBUPROFEN 800 MG TAB PO SCH ×2 (09:06→12:53)
--- NOTE | 2018-06-02 12:10 | NUR ---
PT CONSUMED ALMOST 100% OF BREAKFAST AND LUNCH. FOOD TOLERATED WELL.
--- NOTE | 2018-06-02 14:30 | NUR ---
DISCHARGE INSTRUCTIONS AND PRESCRIPTIONS GIVEN TO PT WHICH VERBALIZED FULL UNDERSTANDING OF THE INSTRUCTIONS AND TEACHINGS AND THE NEED TO FOLLOW UP WITH DR. VILLASENOR'S GROUP IN THE SCHEDULED DATE. ARM BANDS AND IV REMOVED, CANNULA TIP INTACT.
--- NOTE | 2018-06-02 14:35 | NUR ---
PT WHEELED OUT TO THE PARKING LOT IN STABLE CONDITION. NO SOB NOTED. NO COMPLAINTS MADE. PT IS D/C HOME WITH .
[2018-06-02] MEDS ORDERED: ISOSORBIDE MONONITRATE 30 MG TABER PO SCH (17:00)
== END 2018-06-02 14:35 | disposition home or self-care (01) | DRG 243 ==
LOC: MED 20:10 → MTU 21:37
PROVIDERS: ADMIT General Practice; ATTEND General Practice
PROC: 3E02340 Introduction of Influenza Vaccine into Muscle, Percutaneous Approach (ICD-10-PCS; principal; 2018-06-01)
PROC: 3E0234Z Introduction of Serum, Toxoid and Vaccine into Muscle, Percutaneous Approach (ICD-10-PCS; 2018-06-01)
DX: K21.9 Gastro-esophageal reflux disease without esophagitis (principal); N17.0 Acute kidney failure with tubular necrosis; I50.43 Acute on chronic combined systolic (congestive) and diastolic (congestive) heart failure; I13.0 Hypertensive heart and chronic kidney disease with heart failure and stage 1 through stage 4 chronic kidney disease, or unspecified chronic kidney disease; E11.21 Type 2 diabetes mellitus with diabetic nephropathy; G90.9 Disorder of the autonomic nervous system, unspecified; E11.40 Type 2 diabetes mellitus with diabetic neuropathy, unspecified; E11.65 Type 2 diabetes mellitus with hyperglycemia; K59.00 Constipation, unspecified; R55 Syncope and collapse; Z88.8 Allergy status to other drugs, medicaments and biological substances; N18.9 Chronic kidney disease, unspecified; M19.90 Unspecified osteoarthritis, unspecified site; E01.0 Iodine-deficiency related diffuse (endemic) goiter; E78.5 Hyperlipidemia, unspecified; E83.42 Hypomagnesemia; I72.9 Aneurysm of unspecified site; Z23 Encounter for immunization
CPT/HCPCS: 36415; 70450; 71045; 74018; 76536; 80048; 80053; 82140; 82150; 82948; 83036; 83690; 83735; 83880; 84100; 84134; 84436; 84443; 84484; 85025; 85610; 85730; 87081; 90658; 90732; 93005; 93880; 96374; 96375; 97110; 97116; 97530; 99285; G0482; J1644; J1815; J1885; J1940; J2060; J2270; J2405; J3490; J7030; J8597; Q0092

== ENCOUNTER 2018-09-07 21:43 | Emergency (ER) | payer MEDICAID ==
[~2018-09-07] VITALS: Ht 172.7 cm; Wt 106.1 kg
[~2018-09-07 21:43] MED LIST changes: +AMLO5TAB6 PO; -CARV3.12 PO; +CARV3.122 PO; +FAMO-90 PO; -HYDR-3320 PO; +ISOS30TE68 PO; +LOSA25TA1 PO; -METF1000 PO; +METF850T PO; +ORE25 PO; +TRI48 PO
--- NOTE | 2018-09-07 21:50 | NUR ---
PT C/O CHEST PAIN UPON ARRIVAL TO ED. PT STATES PAIN 9/10. PT AAOX4. PT ABLE TO TRANFER FROM WHEELCHAIR TO BED WITHOUT ASSIST. EKG DONE AT BEDSIDE. SIDERAILS UP. PT PLACED ON MONITOR. ED MADE AWARE OF STATUS.
--- NOTE | 2018-09-07 21:51 | NUR ---
PT TAKEN TO BED 11
[2018-09-07 21:55] VITALS: BP 148/91
[2018-09-07] MEDS ORDERED: KETOROLAC 60 MG/2 ML VIAL IM ONE (22:30)
--- NOTE | 2018-09-07 22:40 | NUR ---
PATIENT LEFT WITHOUT BEING SEEN BY DR. VERAS. NO FURTHER CARE PROVIDED FOR PATIENT.
== END 2018-09-07 22:40 | disposition left against medical advice (07) ==
LOC: MED 21:43
DX: R07.9 Chest pain, unspecified (principal); F41.9 Anxiety disorder, unspecified; Z53.21 Procedure and treatment not carried out due to patient leaving prior to being seen by health care provider

== ENCOUNTER 2019-08-21 02:26 | Emergency (ER) | payer MEDICAID, OTHER ==
[~2019-08-21] VITALS: Ht 177.8 cm; Wt 113.4 kg
[2019-08-21 02:26] VITALS: BP 141/93
[~2019-08-21 02:26] MED LIST changes: +ASPI-1718 PO; -ASPI81CT89 PO
--- NOTE | 2019-08-21 02:26 | NUR ---
ERIKA WATKINS ALS TO ER BED 01
--- NOTE | 2019-08-21 02:32 | NUR ---
59 YEAR OLD MALE BIBA COMPLAINS OF 10/10 LEFT SHARP FLANK PAIN X 35MINS AGO SUDDENLY. PATIENT MOANING AND STATES HES IN PAIN. PATIENT DENIES NAUSEA, VOMITTING, AND DIARRHEA. PATIENT ALERT AND ORIENTED, BREATHING EVEN AND UNLABORED, SKIN WARM AND DRY. HR 80, O2 98% ON RA, RR 15, BP 141/93. BED IN LOWEST POSITION, LOCKED, BED RAIL UPX1. PMH - DIABETES, TUMOR LEFT FLANK ALLERGIES - NORCO, TORADOL, IBUPROFEN
--- NOTE | 2019-08-21 02:50 | NUR ---
PATIENT STATES HE IS IN 10 PAIN, DR CONTRERAS MADE AWARE
[2019-08-21 03:16] LABS: BASOPHILS % (AUTO) 0.7 % (0.0-2.0); EOSINOPHILS # (AUTO) 0.1 K/uL (0-0.4); EOSINOPHILS % (AUTO) 1.8 % (0.0-4.0); HEMATOCRIT 45.9 % (36-52); HEMOGLOBIN 15.4 g/dL (12.0-18.0); LYMPHOCYTES % (AUTO) 34.7 % (20.5-51.1); MEAN CORPUSCULAR HEMOGLOBIN 29 pg (27-31); MEAN CORPUSCULAR HGB CONC 34 g/dL (33-37); MEAN CORPUSCULAR VOLUME 87.1 fL (80-94); MONOCYTES # (AUTO) 0.5 K/uL (0.8-1.0); MONOCYTES % (AUTO) 9.1 % (1.7-9.3); NEUTROPHILS # (AUTO) 3.1 K/uL (1.8-7.7); NEUTROPHILS % (AUTO) 53.7 % (42.2-75.2); PLATELET COUNT (AUTO) 164 K/uL (140-450); RED BLOOD CELL COUNT(AUTO) 5.27 MIL/uL (4.20-6.10); RED CELL DISTRIBUTION WIDTH 13.5 % (11.6-13.7); WHITE BLOOD COUNT (AUTO) 5.8 K/uL (4.8-10.8)
[2019-08-21 03:30] LABS: CARBON DIOXIDE 25.8 mmol/L (21-32); CREATININE 1.1 mg/dL (0.7-1.3); POTASSIUM 3.8 mmol/L (3.5-5.1)
[2019-08-21 03:35] LABS: ALBUMIN 3.7 g/dL (3.4-5.0); TOTAL BILIRUBIN 0.5 mg/dL (0.0-1.0)
[2019-08-21] MEDS ORDERED: fentaNYL 0.05 MG/ML VIAL IM ONE (03:35)
--- NOTE | 2019-08-21 03:48 | NUR ---
PATIENT STATES HE IS ALLERGIC TO FENTANYL, DR CONTRERAS MADE AWARE
--- NOTE | 2019-08-21 03:50 | NUR ---
PATIENT STATES THAT HE IS ALLERGIC TO ALMOST ALL PAIN MEDICATIONS EXCEPT MORPHINE
--- NOTE | 2019-08-21 04:00 | NUR ---
DR CONTRERAS STATES THAT SHE WANTS TO WAIT FOR LAB RESULTS BEFORE MORPHINE ORDER
--- NOTE | 2019-08-21 04:28 | NUR ---
PATIENT ALERT AND ORIENTED, BREATHING EVEN AND LABORED. PATIENT STATES HE IS IN 10/10 PAIN, DR CONTRERAS AWARE.
--- NOTE | 2019-08-21 05:03 | NUR ---
DR CONTRERAS MADE AWARE OF PATIENT STATUS OF PAIN AGAIN, SHE STATES THAT SHE DOES NOT WANT TO GIVE ANY MEDICATION FOR PAIN "UNTIL SHE IS AWARE WHAT SHE IS TREATING"
--- NOTE | 2019-08-21 05:06 | NUR ---
PATIENT ALERT AND AWAKE, BREATHING EVEN AND UNLABORED
[2019-08-21 05:29] LABS: APPEARANCE,URINE CLEAR (CLEAR); BILIRUBIN,URINE NEGATIVE (NEGATIVE); BLOOD, URINE NEGATIVE (NEGATIVE); COLOR,URINE YELLOW (YELLOW); LEUKOCYTE ESTERASE ,URINE NEGATIVE (NEGATIVE); NITRITE, URINE NEGATIVE (NEGATIVE); PH,URINE 5.5 (5.0-9.0); UGLUCOSE 2+ (NEGATIVE)
[2019-08-21 05:37] LABS: BARBITURATE, URINE NEG. ng/ml (NEG <=200); BENZODIAZEPINE, URINE NEG. ng/mL (NEG <=200); CANNABINOID, URINE NEG. ng/mL (NEG <=50); COCAINE, URINE NEG. ng/mL (NEG <=300); OPIATE, URINE NEG. ng/mL (NEG <=2000); PHENCYCLIDINE SCREEN,URINE NEG. ng/mL (NEG <=25)
[2019-08-21 05:39] LABS: RBC,URINE 0-5 /HPF (0-5)
--- NOTE | 2019-08-21 06:18 | NUR ---
PATIENT STATES THAT HE WANTS TO MAKE A COMPLAINT ABOUT HIS PAIN, CHARGE NURSE GUERO NOTIFIED.
--- NOTE | 2019-08-21 06:20 | NUR ---
DR CONTRERAS AND SENIOR BI ARCHITECT LISA AT BEDSIDE
--- NOTE | 2019-08-21 06:25 | NUR ---
SPOKE TO PT. PT HAS CONCERNS REGARDING RECIEVING PAIN MEDICATION. PT DID NOT INITIALLY GIVE US COMPLETE LIST OF MEDICATION THAT HE IS ALLERGIC TO TILL AFTER MEDICATIONS WERE ORDERED FOR PAIN. PT WAS ORDERED MEDS FOR PAIN BUT STATED HE ONLY WANTED MORPHINE AND NOT FENTANYL THAT WAS ORDERED. ERMD WAS MADE AWARE BY PRIMARY NURSE. PT WAS EDUCATED THAT IT IS IMPORTANT TO LET THE STAFF KNOW ALL THE MEDICATIONS THAT HE IS ALLERGIC TO ENSURE SAFE PATIENT CARE.
[2019-08-21] MEDS ORDERED: MORPHINE SULFATE 4 MG/ML SYR IVP ONE ×2 (06:30→08:10)
[2019-08-21] MEDS ORDERED: cefTRIAXone 1,000 MG VIAL ONE (06:43)
--- NOTE | 2019-08-21 07:18 | NUR ---
PATIENT REPORTS LESS PAIN. PAIN /. ERMD NOTIFIED
--- NOTE | 2019-08-21 07:18 | NUR ---
Pt report given to JOHNNY KENNEDY. Transfer of care at this time.
--- NOTE | 2019-08-21 07:24 | NUR ---
received report from mykel cole.
[2019-08-21 08:12] VITALS: BP 165/95
--- NOTE | 2019-08-21 08:12 | NUR ---
Patient discharged with v/s stable. Written and verbal after care instructions given and explained regarding uti. Patient alert, oriented and verbalized understanding of instructions. Ambulatory with steady gait. All questions addressed prior to discharge. ID band removed. Patient advised to follow up with PMD. Rx of cipro and tramadol given. Patient educated on indication of medication including possible reaction and side effects. Opportunity to ask questions provided and answered.
== END 2019-08-21 08:12 | disposition home or self-care (01) ==
LOC: MED 02:26
DX: N39.0 Urinary tract infection, site not specified (principal); G89.29 Other chronic pain; E11.9 Type 2 diabetes mellitus without complications; I10 Essential (primary) hypertension; Z79.84 Long term (current) use of oral hypoglycemic drugs; Z79.82 Long term (current) use of aspirin; Z79.899 Other long term (current) drug therapy; Z88.6 Allergy status to analgesic agent; Z88.5 Allergy status to narcotic agent; Z88.8 Allergy status to other drugs, medicaments and biological substances
CPT/HCPCS: 36415; 80053; 80305; 81001; 85025; 87086; 96365; 96375; 99283; J0696; J2270; J3010

== ENCOUNTER 2020-10-17 12:24 | Emergency (ER) | payer MEDICAID ==
[~2020-10-17] VITALS: Ht 172.7 cm; Wt 130.6 kg
[~2020-10-17 12:24] MED LIST changes: +AMLO-3 PO; -AMLO5TAB6 PO; -ASPI-1718 PO; +ASPI-1822 PO
[2020-10-17] MEDS ORDERED: AMMONIA AROMATIC 1 INHL INH ONE (12:25)
[2020-10-17] MEDS ORDERED: NACL 0.9% 2,000 ML IV ONE (12:25)
[2020-10-17 12:26] VITALS: BP 151/84
[2020-10-17 12:50] LABS: BASOPHILS % (AUTO) 0.6 % (0.0-2.0); EOSINOPHILS # (AUTO) 0.1 K/uL (0-0.4); EOSINOPHILS % (AUTO) 1.5 % (0.0-4.0); HEMATOCRIT 47.3 % (36-52); HEMOGLOBIN 16.2 g/dL (12.0-18.0); LYMPHOCYTES # (AUTO) 2.3 K/uL (2.0-11.5); LYMPHOCYTES % (AUTO) 45.1 % (20.5-51.1); MEAN CORPUSCULAR HEMOGLOBIN 29 pg (27-31); MEAN CORPUSCULAR HGB CONC 34 g/dL (33-37); MEAN CORPUSCULAR VOLUME 85.9 fL (80-94); MONOCYTES # (AUTO) 0.4 K/uL (0.8-1.0); MONOCYTES % (AUTO) 7.8 % (1.7-9.3); NEUTROPHILS # (AUTO) 2.3 K/uL (1.8-7.7); PLATELET COUNT (AUTO) 154 K/uL (140-450); RED BLOOD CELL COUNT(AUTO) 5.51 MIL/uL (4.20-6.10); RED CELL DISTRIBUTION WIDTH 13.3 % (11.6-13.7); WHITE BLOOD COUNT (AUTO) 5.1 K/uL (4.8-10.8)
[2020-10-17 13:05] LABS: ALBUMIN 3.8 g/dL (3.4-5.0); ANION GAP 13.6 (8-16); ASPARTATE AMINOTRANSFERASE 13 U/L (15-37); CARBON DIOXIDE 25.2 mmol/L (21-32); CHLORIDE 101 mmol/L (98-107); CREATININE 1.1 mg/dL (0.6-1.3); GFR ARICAN-AMERICAN 88 mL/min (>90); GLUCOSE 234 mg/dL (74-106); POTASSIUM 3.8 mmol/L (3.5-5.1); SODIUM SERUM 136 mmol/L (136-145); TOTAL BILIRUBIN 0.8 mg/dL (0.0-1.0); UREA NITROGEN, BLOOD 18 mg/dL (7-18)
[2020-10-17 13:09] LABS: ACETAMINOPHEN < 0.5 ug/ml (10-30); SALICYLATE < 2.8 mg/dL (2.8-20.0)
[2020-10-17 14:26] LABS: BARBITURATE, URINE NEGATIVE ng/ml (NEG <=200); BENZODIAZEPINE, URINE NEGATIVE ng/mL (NEG <=200); CANNABINOID, URINE NEGATIVE ng/mL (NEG <=50); COCAINE, URINE NEGATIVE ng/mL (NEG <=300); OPIATE, URINE NEGATIVE ng/mL (NEG <=2000); PHENCYCLIDINE SCREEN,URINE NEGATIVE ng/mL (NEG <=25)
[2020-10-17 14:59] VITALS: BP 151/84
== END 2020-10-17 15:00 | disposition home or self-care (01) ==
LOC: MED 12:24
DX: R41.82 Altered mental status, unspecified (principal); G89.29 Other chronic pain; M54.5 Low back pain; E11.9 Type 2 diabetes mellitus without complications; I10 Essential (primary) hypertension; E78.5 Hyperlipidemia, unspecified; Z20.822 Contact with and (suspected) exposure to COVID-19
CPT/HCPCS: 36415; 70450; 71045; 72131; 72192; 80053; 80305; 82140; 82550; 82803; 83605; 83930; 84484; 85025; 87040; 93005; 96360; 99291; G0480; G0482; U0003; J7030